=== PATIENT | female | born 1990 | race Caucasian/White ===

== ENCOUNTER 2022-08-13 15:18 | Emergency (ER) | payer OTHER ==
[~2022-08-13] VITALS: Ht 165.1 cm; Wt 76.2 kg
[2022-08-13 15:22] VITALS: BP 115/69
--- NOTE | 2022-08-13 15:32 | NUR ---
PT AMB TO BED 9.
--- NOTE | 2022-08-13 16:03 | NUR ---
32 FEMALE PRESENTS TO ED WITH COMPLAINT OF RLQ PAIN SINCE THIS MORNING. PT REPORTS HAVING INTERMITTENT 4/10 STABBING LIKE PAIN, REPORTS BLOATING. REPORTS TAKING TYLENOL WITH NO RELIEF. ABD SOFT NON TENDER, BOWEL SOUNDS ACTIVE IN ALL QUADRANTS. DENIES N/V/D OR URINARY SYMPTOMS.
[2022-08-13] MEDS ORDERED: IBUPROFEN 600 MG TAB PO ONE (16:20)
[2022-08-13 16:37] LABS: BASOPHILS # (AUTO) 0.1 K/uL (0.00-0.22); BASOPHILS % (AUTO) 0.8 % (0.0-2.0); EOSINOPHILS # (AUTO) 0.1 K/uL (0-0.4); EOSINOPHILS % (AUTO) 1.9 % (0.0-4.0); HEMATOCRIT 38.2 % (36-48); HEMOGLOBIN 12.9 g/dL (12.0-16.0); LYMPHOCYTES # (AUTO) 2.5 K/uL (2.5-16.5); LYMPHOCYTES % (AUTO) 34.6 % (20.5-51.1); MEAN CORPUSCULAR HEMOGLOBIN 32 pg (27-31); MEAN CORPUSCULAR HGB CONC 34 g/dL (33-37); MEAN CORPUSCULAR VOLUME 94.1 fL (80-94); MONOCYTES # (AUTO) 0.4 K/uL (0.8-1.0); NEUTROPHILS # (AUTO) 4.2 K/uL (1.8-7.7); NEUTROPHILS % (AUTO) 57.7 % (42.2-75.2); PLATELET COUNT (AUTO) 156 K/uL (140-450); RED BLOOD CELL COUNT(AUTO) 4.06 MIL/uL (4.20-5.40); RED CELL DISTRIBUTION WIDTH 13.7 % (11.6-13.7); WHITE BLOOD COUNT (AUTO) 7.2 K/uL (4.8-10.8)
[2022-08-13 17:02] LABS: ALBUMIN 3.8 g/dL (3.4-5.0); ANION GAP 12.3 (8-16); CARBON DIOXIDE 26.6 mmol/L (21-32); CREATININE 0.7 mg/dL (0.6-1.3); POTASSIUM 3.9 mmol/L (3.5-5.1); TOTAL BILIRUBIN 0.4 mg/dL (0.0-1.0)
[2022-08-13] MEDS ORDERED: SIME80TA22 PO (18:20)
[2022-08-13] MEDS ORDERED: IBUP-2213 PO (18:20)
--- NOTE | 2022-08-13 18:39 | NUR ---
Patient discharged with v/s stable. Written and verbal after care instructions given ABOUT OVARIAN CYST and explained. Patient alert, oriented and verbalized understanding of instructions. Ambulatory with steady gait. All questions addressed prior to discharge. ID band removed. Patient advised to follow up with PMD. Rx of IBUPROFEN AND SIMETHICONE given. Patient educated on indication of medication including possible reaction and side effects. Opportunity to ask questions provided and answered.
[2022-08-13 18:42] VITALS: BP 106/68
== END 2022-08-13 18:39 | disposition home or self-care (01) ==
LOC: MED 15:18
DX: R10.31 Right lower quadrant pain (principal); N83.201 Unspecified ovarian cyst, right side; Z79.899 Other long term (current) drug therapy
CPT/HCPCS: 36415; 76856; 80053; 81002; 81025; 85025; 93976; 99284; Q0092